=== PATIENT | female | born 2000 | race Caucasian/White ===

== ENCOUNTER 2019-11-16 00:25 | Emergency (ER) | payer OTHER ==
[~2019-11-16] VITALS: Ht 160 cm; Wt 93.4 kg
--- NOTE | 2019-11-16 00:33 | PHYS DOC ---
Past History Past Medical History: Depression, Other General Adult HPI: HPI: "..I ve been having problems for past month.. some say it is a UTI.. ..and I am on antibiotics..and they check my gall bladder....but they don't find anything.." " They just give me pain meds and different antibiotics... I am on a antibiotic now..Dr. 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 Pt. had symptoms x 30 days. Has been seen at [facility] 1 month ago and [facility] 11/04, reported US and CT have been normal. Pt. follows with Dr. Newsome of [facility]. Recently re-started on Cefpodoxime ..200 day has two days of antibiotic remaining.. . Patient states right flank and upper quadrant pain is not related to her p.o. intake. Patient feels like she has frequency and urgency of urination. No recent travel outside the [place] area. No history of specific ill contacts. No history of im munosuppression. No history of vaginal discharge. No history of STDs. One lifetime sex partner. Has had previous episode of Malachi nephritis when she was 14 which resolved with antibiotic therapy Reviewed [facility] [place] report of 11/11/2019. Diagnosis of pyelonephritis. White blood count at that time was 12.1 did have 4+ white cells in urine. CT at that time by renal stone protocol showed mild perinephric inflammation consistent with pyelonephritis. Ultrasound that time showed a normal gallbladder. Patient was discharged on [place], Zofran and cefpodoxine 200 daily x 10 days. Patient has never had a history of EGD or colonoscopy. Review of Systems: Review of Systems: Constitutional: Denies fever or chills Eyes: Denies change in visual acuity HENT: Denies nasal congestion or sore throat Respiratory: Denies cough or shortness of breath Cardiovascular: Denies chest pain or edema GI: Complaintgs of Rt. upper abdominal pain, nausea, and flank pain. Pt. denies vomiting, bloody stools or diarrhea : Denies dysuria Musculoskeletal: Complaints of Rt. upper Flank pain. Integument: Denies rash Neurologic: Denies headache, focal weakness or sensory changes Endocrine: Denies polyuria or polydipsia Lymphatic: Denies swollen glands Psychiatric: Denies depression or anxiety Heart Score: HEART Score for Chest Pain: HEART Score for Chest Pain Response (Comments) Value History Slighlty/Non-Suspicious 0 ECG Normal 0 Age < 45 0 Risk Factors No Risk Factors 0 Troponin < Normal Limit 0 Total 0 Risk Factors: Risk Factors: DM, Current or recent (<one month) smoker, HTN, HLP, family hi story of CAD, obesity. Risk Scores: Score 0 - 3: 2.5% MACE over next 6 weeks - Discharge Home Score 4 - 6: 20.3% MACE over next 6 weeks - Admit for Clinical Observation Score 7 - 10: 72.7% MACE over next 6 weeks - Early Invasive Strategies Family History: Family History: Family history of breast cancer with and, diabetes with grandmother, heart disease in her grandfather, high blood pressure with father, migraines with mother. Mother also has history of some colon problems which caused GI bleeds. Current Medications: Current Meds: See nursing for home meds Allergies: Allergies: No known drug allergies Physical Exam: PE: Constitutional: Moderate acute distress, non-toxic appearance. [] HENT: Normocephalic, atraumatic, bilateral external ears normal, oropharynx dry, no oral exudates, nose normal. [] Eyes: PERRLA, EOMI, conjunctiva normal, no discharge. [] Neck: Normal range of motion, no tenderness, supple, no stridor. [] Cardiovascular:Heart rate regular rhythm, no murmur [] Lungs & Thorax: Bilateral breath sounds equal at apex on auscultation [] Abdomen: Bowel sounds decreased soft, right upper quadrant and right flank tenderness, no masses, no pulsatile masses. Obese. Rebound to the right upper flank. Skin: Warm, diaphoretic,, no erythema, no rash. [] Back: No tenderness, no CVA tenderness. [] Extremities: No tenderness, no cyanosis, no clubbing, ROM intact, no edema. No psoas sign. Neurologic: Alert and oriented X 3, normal motor function, normal sensory function, no focal deficits noted. [] Psychologic: Affect anxious and tearful, judgement normal, mood depressed affect EKG: EKG: My interpretation EKG shows a sinus rhythm at 82 bpm. No acute morphology. Essentially normal EKG. [] Radiology/Procedures: Radiology/Procedures: [[address] [address] IMAGING REPORT Signed PATIENT: HAYDEE MARTIN ACCOUNT: [id number] : 2000 LOCATION: ER AGE: 19 SEX: F EXAM STATUS: REG ER ORD. PHYSICIAN: MARLYN LEON MD REASON: suspect pylo, abscess? Rt. upper abd. and flank pain PROCEDURE: CT ABDOMEN PELVIS WO/W EXAM: CT ABDOMEN/PELVIS WITH AND WITHOUT CONTRAST. HISTORY: Pyelonephritis, abscess. TECHNIQUE: Computed tomography of the abdomen and pelvis was performed before and after the intravenous administration of Isovue-370. One or more of the following individualized dose reduction techniques were utilized for this examination: 1. Automated exposure control. 2. Adjustment of the mA and/or kV according to patient size. 3. Use of iterative reconstruction technique. COMPARISON: 10/08/2019. FINDINGS: Lung windows through the visualized portions of the bases reveal no abnormality. Bone windows reveal no suspicious lesions. The liver, spleen, gallbladder, pancreas and adrenal glands are unremarkable. There are no pathologically enlarged lymph nodes. The kidneys are unremarkable. There are no renal or ureteral calculi. There is no evidence of pyelonephritis by CT, though CT is not sensitive. There is no abscess. Both ovaries are enlarged with peripheral small follicles consistent with polycystic ovarian syndrome. The appendix is not inflamed. There is mild wall thickening along the right colon. There is no small bowel obstruction. IMPRESSION: 1. No evidence of renal abscess. No evidence of pyelonephritis by CT. 2. Correlate for mild right colitis. 3. Findings consistent with polycystic ovarian syndrome. Correlate with other clinical data. Electronically signed by: Nic Shrestha MD (11/16/2019 5:07 AM) [facility] DICTATED AND SIGNED BY: ARGENTINA SHRESTHA MD DATE: 11/16/19 0507 CC: MARLYN LEON MD; JOSSELINE NEWSOME MD ~ ][address] [address] IMAGING REPORT Signed PATIENT: HAYDEE MARTIN ACCOUNT: [id number] : 2000 LOCATION: ER AGE: 19 SEX: F EXAM STATUS: REG ER ORD. PHYSICIAN: MARLYN LEON MD REASON: pain Rt. flank and upper quadrant PROCEDURE: ACUTE ABDOMEN SERIES EXAM: 2 VIEW ABDOMEN WITH ONE VIEW CHEST. HISTORY: Right flank and abdominal pain. COMPARISON: None. FINDINGS: A frontal view of the chest and supine/upright views of the abdomen are obtained. There are no confluent infiltrates. There is no pneumothorax or pleural effusion. The heart is not enlarged. There is no pneumoperitoneum. There are no distended small bowel loops or significant air-fluid levels. There is gas distally. IMPRESSION: 1. No confluent infiltrates. 2. No evidence of obstruction. Electronically signed by: Nic Shrestha MD (11/16/2019 2:16 AM) [facility] DICTATED AND SIGNED BY: ARGENTINA SHRESTHA MD DATE: 11/16/19215 CC: MARLYN LEON MD; JOSSELINE NEWSOME MD ~ Course & Med Decision Making: Course & Med Decision Making Pertinent Labs and Imaging studies reviewed. (See chart for details) Patient currently declines admission or transfer. Patient wants to try another course of outpatient antibiotics with follow-up with her primary care. Recommend patient get EGD and colonoscopy to evaluate for upper GI pain , May need colon bx to evaluate for colitis. Patient stay on a clear fluid diet for the next 2 days. No solids or milk products. Take Zofran 8 mg up to 4 times a day for active vomiting. Patient to complete her course of Ceftin and then start 5-day course of Levaquin 500 mg a day for 5 days. Patient take Flagyl 500 mg 3 times a day for 14 days. Patient exhibits UCAR capacity. Expressed my concerns that no clear cause of her right upper quadrant pain has been identified other than colitis and polycystic ovary changes. Pt. may also need a PIPIDA scan to truly evaluate for gallbladder emptying and spasms. Pt. will need to follow-up with her primary care and develop a consistent plan of action. Express my concern without admit and IV antibiotics she may end up septic. Pt. insistent on discharge. Impression: 1. Renal colic right flank pain? 2. Leukocytosis = 19.4 with 80 segs, smudge cells and toxic granules( increase from 11/10 labs) 3. Hx. Pyleonephritis - 4. History of polycystic ovary disease 5. CT findings tonight more consistent with colitis right upper quadrant [] Dragon Disclaimer: Dragon Disclaimer: This electronic medical record was generated, in whole or in part, using a voice recognition dictation system. Departure Departure: Disposition: HOME/RESIDENCE PRIOR TO ADM Condition: STABLE Scripts Metronidazole (FLAGYL) 500 Mg Tablet 500 MG PO TID for colitis for 14 Days, #42 TAB Prov: MARLYN LEON MD 11/16/19 Ondansetron Hcl (ZOFRAN) 8 Mg Tablet 8 MG PO QIDPRN PRN for for active vomiting, #30 BOTTLE Prov: MARLYN LEON MD 11/16/19 Levofloxacin (LEVAQUIN) 500 Mg Tablet 500 MG PO DAILY for infection, #10 TAB Prov: MARLYN LEON MD 11/16/19 Hydrocodone/Ibuprofen (HYDROCODONE-IBUPROFEN 7.5-200 ) 1 Each Tablet 1 TAB PO PRN Q6HRS PRN for PAIN, #30 TAB 0 Refills Prov: MARLYN LEON MD 11/16/19 Justification of Admission: Justification of Admission: Justification of Admission Dx: N/A Dragon Disclaimer This chart was dictated in whole or in part using Voice Recognition software in a busy, high-work load, and often noisy Emergency Department environment. It may contain unintended and wholly unrecognized errors or omissions. MARLYN LEON MD Nov 16, 2019 00:33
[2019-11-16 01:02] LABS: BARBITURATES NEG (NEG); BENZODIAZEPINES NEG (NEG); CANNABINOIDS NEG (NEG); COCAINE NEG (NEG); METHADONE NEG (NEG); OPIATES POS (NEG); PHENCYCLIDINE NEG (NEG)
[2019-11-16 01:03] LABS: CLARITY,URINE HAZY; COLOR,URINE YELLOW
[2019-11-16 01:04] LABS: BACTERIA,URINE MOD /HPF (0-FEW); BILIRUBIN,URINE NEG (NEG); GLUCOSE,URINE NEG (NEG); NITRITE,URINE NEG (NEG); RBC,URINE OCC /HPF (0-2); SQUAMOUS EPITHELIAL CELL,UR MOD /LPF; UROBILINOGEN,URINE 0.2 mg/dL (0.2 mg/dL)
[2019-11-16 01:09] LABS: AMPHETAMINE/METHAMPHETAMINE NEG (NEG)
[2019-11-16] MEDS ORDERED: ONDANSETRON PF 4 MG/2 ML VIAL. ONE (01:11)
[2019-11-16] MEDS ORDERED: KETOROLAC 30 MG/ML VIAL. IVP ONE (01:15)
[2019-11-16] MEDS ORDERED: IV RINGERS SOLUTION,LACTATED 1,000 ML IV SCH (01:15)
[2019-11-16] MEDS ORDERED: FAMOTIDINE 20 MG/2 ML VIAL IVP ONE (01:15)
[2019-11-16] MEDS ORDERED: ONDANSETRON PF 4 MG/2 ML VIAL. IVP ONE (01:15)
--- NOTE | 2019-11-16 01:23 | EKG ---
[address] [address] Test Date: 2019-11-16 Test Time: 01:18:50 Pat Name: HAYDEE MARTIN Department: Room: Gender: F Chemical Worker: : 2000 Requested By: MARLYN LEON Order Number: [id number] Reading MD: Anuj Ewing MD Measurements Intervals [place] Rate: 82 P: 0 NV: 140 QRS: 35 QRSD: 86 T: 23 QT: 360 QTc: 424 Interpretive Statements SINUS RHYTHM Electronically Signed On 11-17-2019 13:04:37 CDT by Anuj Ewing MD
[2019-11-16 02:02] LABS: BASO # 0.1 x10^3/uL (0.0-0.2); BASO % 0 % (0-3); EOS % 0 % (0-3); HEMOGLOBIN 12.3 g/dL (12.0-15.5); LYMPH # 1.6 x10^3/uL (1.0-4.8); LYMPH % 8 % (24-48); MEAN CORPUSCULAR HEMOGLOBIN 28 pg (25-35); MEAN CORPUSCULAR HGB CONC 33 g/dL (31-37); MEAN CORPUSCULAR VOLUME 84 fL (79-100); MONO # 1.2 x10^3/uL (0.0-1.1); MONO % 6 % (0-9); NEUT # 16.5 x10^3uL (1.8-7.7); NEUT % 85 % (31-73); PLATELET COUNT 364 x10^3/uL (140-400); RED CELL DISTRIBUTION WIDTH 13.5 % (11.5-14.5); WHITE BLOOD COUNT 19.4 x10^3/uL (4.0-11.0)
[2019-11-16 02:03] LABS: CREATININE 0.9 mg/dL (0.6-1.0)
[2019-11-16 02:09] LABS: ALBUMIN 3.7 g/dL (3.4-5.0); DIRECT BILIRUBIN 0.1 mg/dL (0.0-0.2); POTASSIUM 3.9 mmol/L (3.5-5.1); TOTAL BILIRUBIN 0.5 mg/dL (0.2-1.0); TOTAL PROTEIN 7.7 g/dL (6.4-8.2)
[2019-11-16 02:14] LABS: INFLUENZA A PATIENT NEGATIVE (NEGATIVE); INFLUENZA B PATIENT NEGATIVE (NEGATIVE)
--- NOTE | 2019-11-16 02:19 | RAD ---
EXAM: 2 VIEW ABDOMEN WITH ONE VIEW CHEST. HISTORY: Right flank and abdominal pain. COMPARISON: None. FINDINGS: A frontal view of the chest and supine/upright views of the abdomen are obtained. There are no confluent infiltrates. There is no pneumothorax or pleural effusion. The heart is not enlarged. There is no pneumoperitoneum. There are no distended small bowel loops or significant air-fluid levels. There is gas distally. IMPRESSION: 1. No confluent infiltrates. 2. No evidence of obstruction. Electronically signed by: Nic Shrestha MD (11/16/2019 2:16 AM) [facility]
[2019-11-16 02:47] LABS: % BANDS 7 % (0-9); % EOS 1 % (0-5); % LYMPHS 6 % (24-48); % MONOS 6 % (0-10); % SEGS 80 % (35-66); PLT ESTIMATE ADEQUATE (ADEQUATE)
[2019-11-16 02:48] LABS: HYPERSEGS PRESENT; SMUDGE CELLS PRESENT; TOXIC GRANULATION MOD
[2019-11-16] MEDS ORDERED: cefTRIAXone SODIUM 1 GM VIAL ONE (02:55)
[2019-11-16] MEDS ORDERED: CONTRAST GIVEN MC PRN (03:45)
[2019-11-16] MEDS ORDERED: IOHEXOL 300 MG/ML 75 ML VIAL. IV ONE (03:45)
--- NOTE | 2019-11-16 05:10 | RAD ---
EXAM: CT ABDOMEN/PELVIS WITH AND WITHOUT CONTRAST. HISTORY: Pyelonephritis, abscess. TECHNIQUE: Computed tomography of the abdomen and pelvis was performed before and after the intravenous administration of Isovue-370. One or more of the following individualized dose reduction techniques were utilized for this examination: 1. Automated exposure control. 2. Adjustment of the mA and/or kV according to patient size. 3. Use of iterative reconstruction technique. COMPARISON: 10/08/2019. FINDINGS: Lung windows through the visualized portions of the bases reveal no abnormality. Bone windows reveal no suspicious lesions. The liver, spleen, gallbladder, pancreas and adrenal glands are unremarkable. There are no pathologically enlarged lymph nodes. The kidneys are unremarkable. There are no renal or ureteral calculi. There is no evidence of pyelonephritis by CT, though CT is not sensitive. There is no abscess. Both ovaries are enlarged with peripheral small follicles consistent with polycystic ovarian syndrome. The appendix is not inflamed. There is mild wall thickening along the right colon. There is no small bowel obstruction. IMPRESSION: 1. No evidence of renal abscess. No evidence of pyelonephritis by CT. 2. Correlate for mild right colitis. 3. Findings consistent with polycystic ovarian syndrome. Correlate with other clinical data. Electronically signed by: Nic Shrestha MD (11/16/2019 5:07 AM) [facility]
[2019-11-16] MEDS ORDERED: ONDA8TAB9 PO (05:56)
[2019-11-16] MEDS ORDERED: HYDR-1179 PO (05:56)
[2019-11-16] MEDS ORDERED: LEVO500T59 PO (05:56)
[2019-11-16] MEDS ORDERED: METR500T PO (05:56)
[2019-11-16 06:30] VITALS: BP 108/40
[2019-11-16] MEDS ORDERED: ONDANSETRON 4MG ODT 4TABLET STARTPACK. PO ONE ×2 (06:31→07:15)
== END 2019-11-16 06:35 | disposition home or self-care (01) ==
LOC: ER 00:25
DX: N23 Unspecified renal colic (principal); D72.829 Elevated white blood cell count, unspecified; E28.2 Polycystic ovarian syndrome
CPT/HCPCS: 36415; 74022; 74178; 80048; 80076; 80307; 81001; 81025; 82550; 83690; 84484; 85007; 85025; 85610; 85730; 87040; 87070; 87086; 87804; 87880; 93005; 96365; 96368; 96375; 99285; J0696; J1885; J2405; J3490; J7120; Q9967; Q0162

== ENCOUNTER 2019-11-22 00:36 | Emergency (ER) | payer OTHER ==
[~2019-11-22] VITALS: Ht 160 cm; Wt 93.4 kg
[~2019-11-22 00:36] MED LIST: HYDR-1179 PO; LEVO500T59 PO; METR500T PO; ONDA8TAB9 PO
--- NOTE | 2019-11-22 00:42 | PHYS DOC ---
Past History Past Medical History: Depression, Other Past Medical History Polycystic Ovary by CT, Colitis by CT, Pyleonephritis Past Surgical History: Other Additional Past Surgical Histo: wisdom teeth Alcohol Use: Occasionally General Adult HPI: HPI: "...I was here last week.. I think you may have seen me for part of the visit.. I followed up with my primary.... they were going to send me to a GI specialist....:' But the pain came back more to night..." .and I had some bright red blood... on my last stool.. I have not been taking my antibiotics because I was nauseate.. I didnt take my zofran.. because it said to take it with water... " " I been follow up with [facility]. [facility].. Patient is a 19 year old female who presents with above hx and complaints continued right upper quadrant pain, nausea, and now bright red blood on last stool. No history of trauma. No history of bad food. No history of travel outside [facility] other than to [facility]'s office. Has not been compliant with antibiotics. His previous diagnosis at [facility] pyelonephritis. CT at our facility on 11/15 showed polycystic ovary disease and suggestions of colitis. Patient presents the same right upper quadrant pain. Patient has not yet received any PIPIDA scan to evaluate for gallbladder spasms. Patient states she no longer has any Flagyl left in spite of the fact she had a 10 days prescription on 11/15. Prior WBC on 11/15 was 19.4, tonight 13.9 Review of Systems: Review of Systems: Constitutional: Denies fever or chills Eyes: Denies change in visual acuity HENT: Denies nasal congestion or sore throat Respiratory: Denies cough or shortness of breath Cardiovascular: Denies chest pain or edema GI: Complaints of Rt. upper quadrant abdominal pain, nausea, and bright red rectal bleeding on stool before arrival. : Denies dysuria Musculoskeletal: Denies back pain or joint pain Integument: Denies rash Neurologic: Denies headache, focal weakness or sensory changes Endocrine: Denies polyuria or polydipsia Lymphatic: Denies swollen glands Psychiatric: Complains of anxiety Heart Score: Risk Factors: Risk Factors: DM, Current or recent (<one month) smoker, HTN, HLP, family history of CAD, obesity. Risk Scores: Score 0 - 3: 2.5% MACE over next 6 weeks - Discharge Home Score 4 - 6: 20.3% MACE over next 6 weeks - Admit for Clinical Observation Score 7 - 10: 72.7% MACE over next 6 weeks - Early Invasive Strategies Family History: Family History: Family history of cancer- Current Medications: Current Meds: See Nursing for home meds Allergies: Allergies: Allergies Coded Allergies Type Severity Reaction Last Updated Verified No Known Drug Allergies 11/16/19 No Physical Exam: PE: Constitutional: moderate acute distress, non-toxic appearance. [] HENT: Normocephalic, atraumatic, bilateral external ears normal, oropharynx moist, no oral exudates, nose normal. [] Eyes: PERRLA, EOMI, conjunctiva normal, no discharge. [] Neck: Normal range of motion, no tenderness, supple, no stridor. [] Cardiovascular:Heart rate regular rhythm, no murmur [] Lungs & Thorax: Bilateral breath sounds equal apexes onauscultation [] Abdomen: Bowel sounds normal, soft, Rt. upper quadrant tenderness, no masses, no pulsatile masses. Rectal no gross blood. Skin: Warm, dry, no erythema, no rash. [] Back: No tenderness, no CVA tenderness. [] Extremities: No tenderness, no cyanosis, no clubbing, ROM intact, no edema. [] No psoas sign Neurologic: Alert and oriented X 3, normal motor function, normal sensory function, no focal deficits noted. [] Psychologic: Affect anxious, judgement normal, mood normal. [] EKG: EKG: [] Radiology/Procedures: Radiology/Procedures: [] IMAGING REPORT Signed PATIENT: HAYDEE MARTIN ACCOUNT: [id number] : 2000 LOCATION: ER AGE: 19 SEX: F EXAM STATUS: REG ER ORD. PHYSICIAN: MARLYN LEON MD REASON: pain, X 1 MONTH. PROCEDURE: ACUTE ABDOMEN SERIES EXAM: 2 VIEW ABDOMEN WITH ONE VIEW CHEST. HISTORY: Chest/abdominal pain. COMPARISON: 11/16/2019. FINDINGS: A frontal view of the chest and supine/upright views of the abdomen are obtained. There are no confluent infiltrates. There is no pneumothorax or pleural effusion. The heart is not enlarged. There is no pneumoperitoneum. There are no distended small bowel loops or significant air-fluid levels. There is gas distally. IMPRESSION: 1. No confluent infiltrates. 2. No evidence of obstruction. Electronically signed by: Nic Shrestha MD (11/22/2019 3:40 AM) [facility] DICTATED AND SIGNED BY: ARGENTINA SHRESTHA MD DATE: 11/22/19339 CC: MARLYN LEON MD; JOSSELINE PATTERSON MD ~ Course & Med Decision Making: Course & Med Decision Making Pertinent Labs and Imaging studies reviewed. (See chart for details) Patient to remain on clear fluid diet. No solids. No milk products. Take meds as directed. Keep follow-up with primary. Still recommend patient take Flagyl 500 mg 3 times a day. Get PIPIDA scan or equivalent study.. Get colonoscopy. Follow-up with [facility]. Take meds as directed. Take Tylenol and ibuprofen for pain. Impression: 1. Rt.Upper quadrant abdomen pain 2. Polycystic ovary by CT 3. Colitis-suggested by CT 4. History of pyelonephritis 5. Drug screen positive for methamphetamine 6. Anxiety 7. Hx. of Outlet GI Bleeding- No blood on rectal exam. 8. Noncompliant with med regimen [] Dragon Disclaimer: Dragon Disclaimer: This electronic medical record was generated, in whole or in part, using a voice recognition dictation system. Departure Departure: Disposition: HOME/RESIDENCE PRIOR TO ADM Condition: STABLE Referrals: JOSSELINE PATTERSON MD (PCP) Scripts Metronidazole (FLAGYL) 500 Mg Tablet 500 MG PO TID for colitis for 10 Days, #30 TAB Prov: MARLYN LEON MD 11/22/19 Ondansetron Hcl (ZOFRAN) 8 Mg Tablet 8 MG PO QIDPRN PRN for active vomiting, #30 BOT Prov: MARLYN LEON MD 11/22/19 Justification of Admission: Justification of Admission: Justification of Admission Dx: N/A Dragon Disclaimer This chart was dictated in whole or in part using Voice Recognition software in a busy, high-work load, and often noisy Emergency Department environment. It may contain unintended and wholly unrecognized errors or omissions. MARLYN LEON MD Nov 22, 2019 00:42
[2019-11-22] MEDS ORDERED: IV RINGERS SOLUTION,LACTATED 1,000 ML IV SCH (01:00)
[2019-11-22] MEDS ORDERED: ONDANSETRON PF 4 MG/2 ML VIAL. IVP ONE (01:00)
[2019-11-22] MEDS ORDERED: FAMOTIDINE 20 MG/2 ML VIAL IVP ONE (01:00)
[2019-11-22] MEDS ORDERED: MAGNESIUM HYDROXIDE 2,400 MG/30 ML ORAL.SUSP. PO ONE (02:00)
[2019-11-22 02:13] LABS: BARBITURATES NEG (NEG); BENZODIAZEPINES NEG (NEG); CANNABINOIDS NEG (NEG); COCAINE NEG (NEG); METHADONE NEG (NEG); OPIATES NEG (NEG); PHENCYCLIDINE NEG (NEG)
[2019-11-22 02:14] LABS: CALCIUM 9.4 mg/dL (8.5-10.1)
[2019-11-22 02:15] LABS: BASO % 0 % (0-3); EOS # 0.1 x10^3/uL (0.0-0.7); EOS % 1 % (0-3); HEMOGLOBIN 13.9 g/dL (12.0-15.5); LYMPH # 2.1 x10^3/uL (1.0-4.8); LYMPH % 24 % (24-48); MEAN CORPUSCULAR HEMOGLOBIN 28 pg (25-35); MEAN CORPUSCULAR HGB CONC 33 g/dL (31-37); MEAN CORPUSCULAR VOLUME 85 fL (79-100); MONO # 0.8 x10^3/uL (0.0-1.1); MONO % 9 % (0-9); NEUT # 5.7 x10^3uL (1.8-7.7); NEUT % 65 % (31-73); PLATELET COUNT 337 x10^3/uL (140-400); RED BLOOD COUNT 4.96 x10^6/uL (3.50-5.40); RED CELL DISTRIBUTION WIDTH 13.7 % (11.5-14.5); WHITE BLOOD COUNT 8.8 x10^3/uL (4.0-11.0)
[2019-11-22 02:20] LABS: ALBUMIN 4.1 g/dL (3.4-5.0); DIRECT BILIRUBIN 0.1 mg/dL (0.0-0.2); TOTAL BILIRUBIN 0.8 mg/dL (0.2-1.0); TOTAL PROTEIN 7.8 g/dL (6.4-8.2)
[2019-11-22 02:22] LABS: BILIRUBIN,URINE NEG (NEG); CLARITY,URINE HAZY; COLOR,URINE YELLOW; GLUCOSE,URINE NEG (NEG)
[2019-11-22 02:23] LABS: BACTERIA,URINE MOD /HPF (0-FEW); NITRITE,URINE NEG (NEG); RBC,URINE OCC /HPF (0-2); SQUAMOUS EPITHELIAL CELL,UR MOD /LPF; UROBILINOGEN,URINE 0.2 mg/dL (0.2 mg/dL)
[2019-11-22 02:24] LABS: AMPHETAMINE/METHAMPHETAMINE POS (NEG)
[2019-11-22 03:31] LABS: FECAL OB PT NEGATIVE (NEG)
--- NOTE | 2019-11-22 03:43 | RAD ---
EXAM: 2 VIEW ABDOMEN WITH ONE VIEW CHEST. HISTORY: Chest/abdominal pain. COMPARISON: 11/16/2019. FINDINGS: A frontal view of the chest and supine/upright views of the abdomen are obtained. There are no confluent infiltrates. There is no pneumothorax or pleural effusion. The heart is not enlarged. There is no pneumoperitoneum. There are no distended small bowel loops or significant air-fluid levels. There is gas distally. IMPRESSION: 1. No confluent infiltrates. 2. No evidence of obstruction. Electronically signed by: Nic Shrestha MD (11/22/2019 3:40 AM) [facility]
[2019-11-22] MEDS ORDERED: KETOROLAC 30 MG/ML VIAL. IVP ONE (04:00)
[2019-11-22] MEDS ORDERED: ONDA8TAB9 PO (04:12)
[2019-11-22] MEDS ORDERED: METR500T PO (04:12)
[2019-11-22 04:31] VITALS: BP 107/75
== END 2019-11-22 04:50 | disposition home or self-care (01) ==
LOC: ER 00:36
DX: E28.2 Polycystic ovarian syndrome (principal); F15.10 Other stimulant abuse, uncomplicated; F41.9 Anxiety disorder, unspecified; F32.9 Major depressive disorder, single episode, unspecified; Z91.14 Patient's other noncompliance with medication regimen
CPT/HCPCS: 36415; 74022; 80048; 80076; 80307; 81001; 81025; 82150; 82274; 82550; 83690; 84484; 85025; 85610; 85730; 87086; 96374; 96375; 99285; J1885; J2405; J3490; J7120